=== PATIENT | male | born 1960 | race Caucasian/White ===

== ENCOUNTER → 2021-03-14 | Outpatient (CLI) | payer OTHER, BC | END | disposition home or self-care (01) | LOC: LAB SHORT 15:20 | DX: U07.1 COVID-19 (principal) | CPT/HCPCS: U0003 ==

== ENCOUNTER 2021-11-20 11:35 | Emergency (ER) | payer OTHER, BC ==
[~2021-11-20] VITALS: Ht 177.8 cm; Wt 95.2 kg
[2021-11-20] MEDS ORDERED: OXYC5 PO (14:35)
== END 2021-11-20 14:57 | disposition home or self-care (01) ==
LOC: ER 11:35
DX: S61.217A Laceration without foreign body of left little finger without damage to nail, initial encounter (principal); S61.213A Laceration without foreign body of left middle finger without damage to nail, initial encounter; S61.215A Laceration without foreign body of left ring finger without damage to nail, initial encounter; W27.0XXA Contact with workbench tool, initial encounter
CPT/HCPCS: 73130; 90714; J0690; J1170; J2405

== ENCOUNTER 2021-11-22 05:56 | Day surgery (SDC) | payer OTHER ==
[~2021-11-22] VITALS: Ht 177.8 cm; Wt 75.8 kg
[~2021-11-22 05:56] MED LIST: OXYC5 PO
[2021-11-22] MEDS ORDERED: CEPH250A PO (06:43)
[2021-11-22] MEDS ORDERED: ACET500 PO (06:43)
--- NOTE | 2021-11-22 07:01 | NUR ---
[facility] in [facility] warming gown applied. History, Chart, Medications and Allergies reviewed before start of procedure.Lungs clear T/O to Auscultation. Patient confirms NPO status and agrees with scheduled surgery. Pre-Op teaching done. Pt verbalizes understanding. Patient States Post-Procedure ride home has been arranged.
--- NOTE | 2021-11-22 11:36 | NUR ---
Discharge instructions reviewed with patient. Patient verbalizes understanding. Copy given to patient to take home INCLUDING RX. Dressing to procedure site W/SCANT BLEEDING, EXTRA GAUZE GIVEN, PT TEACHING REINFORCED TO KEEP HAND ELEVATED AT ALL TIMES. DRESSING intact with no visible drainage, swelling, erythema or bruising noted. Discharged via wheelchair to private car for ride home W/ DAUGHTER
== END 2021-11-22 23:07 | disposition home or self-care (01) ==
LOC: ORSCMMR 05:56 → ORD 10:15 → ORSCMMR 10:15
PROVIDERS: Orthopaedic Surgery
PROC: 0LQ80ZZ Repair Left Hand Tendon, Open Approach (ICD-10-PCS; principal; 2021-11-22 07:30)
PROC: 0PSV04Z Reposition Left Finger Phalanx with Internal Fixation Device, Open Approach (ICD-10-PCS; principal; 2021-11-22 07:30)
PROC: 0PU Upper Bones, Supplement (ICD-10-PCS; principal; 2021-11-22 07:30)
PROC: 0HQQXZZ Repair Finger Nail, External Approach (ICD-10-PCS; principal; 2021-11-22 07:30)
DX: S66.127A Laceration of flexor muscle, fascia and tendon of left little finger at wrist and hand level, initial encounter (principal); S62.633B Displaced fracture of distal phalanx of left middle finger, initial encounter for open fracture; S62.617A Displaced fracture of proximal phalanx of left little finger, initial encounter for closed fracture; W27.0XXA Contact with workbench tool, initial encounter
CPT/HCPCS: C1713; J0690; J1100; J1885; J2250; J2405; J2704; J2795; J3010; J7120